=== PATIENT | male | born 1975 | race Caucasian/White ===

== ENCOUNTER 2016-11-12 00:57 | Emergency (ER) | payer MEDICAID ==
--- NOTE | 2016-11-12 02:10 | ER Document Report ---
ED Medical Screen (RME) - General Chief Complaint: Breathing Difficulty Stated Complaint: TROUBLE BREATHING Time seen by provider: 02:08 Notes: 41 year old male, comes to the ED for chief complaint of waking up gasping from sleeping tonight. Has happened 2 nights in a row, only when lying down. Questionable swelling of both ankles. Denies chest pain, denies current symptoms. PMH smoking, HTN, denies CHF or cardiopulmonary hx. No diagnosed RAYMOND. TRAVEL OUTSIDE OF THE [place] IN LAST 30 DAYS: No - Related Data Allergies/Adverse Reactions: No Known Allergies Allergy (Verified 11/28/15 08:44) Past Medical History - Past Medical History Cardiac Medical History: Reports: Hx Hypertension - on meds Denies: Hx Coronary Artery Disease, Hx Heart Attack Pulmonary Medical History: Reports: Hx Bronchitis - hx of, Hx Pneumonia - hx of Denies: Hx Asthma, Hx COPD Neurological Medical History: Denies: Hx Cerebrovascular Accident, Hx Seizures Musculoskeltal Medical History: Denies Hx Arthritis - Immunizations Hx Diphtheria, Pertussis, Tetanus Vaccination: No Physical Exam - Respiratory Respiratory status: No respiratory distress Breath sounds: No: Decreased air movement, Stridor, Wheezing
--- NOTE | 2016-11-12 05:25 | ER Document Report ---
ED Respiratory Problem - General Chief Complaint: Breathing Difficulty Stated Complaint: TROUBLE BREATHING Notes: 41 year old male, comes to the ED for chief complaint of waking up gasping from sleeping tonight. Has happened 2 nights in a row, only when lying down. Questionable swelling of both ankles. Denies chest pain, denies current symptoms. PMH smoking, HTN, denies CHF or cardiopulmonary hx. No diagnosed RAYMOND. TRAVEL OUTSIDE OF THE [place] IN LAST 30 DAYS: No - Related Data Allergies/Adverse Reactions: No Known Allergies Allergy (Verified 11/28/15 08:44) Past Medical History - General Information source: Patient - Social History Smoking Status: Current Some Day Smoker Chew tobacco use (# tins/day): No Frequency of alcohol use: Heavy Drug Abuse: None Lives with: Family Family History: Reviewed & Not Pertinent. denies: CAD Patient has suicidal ideation: No Patient has homicidal ideation: No - Past Medical History Cardiac Medical History: Reports: Hx Hypertension - on meds Denies: Hx Coronary Artery Disease, Hx Heart Attack Pulmonary Medical History: Reports: Hx Bronchitis - hx of, Hx Pneumonia - hx of Denies: Hx Asthma, Hx COPD Neurological Medical History: Denies: Hx Cerebrovascular Accident, Hx Seizures Renal/ Medical History: Denies: Hx Peritoneal Dialysis Musculoskeltal Medical History: Denies Hx Arthritis - Immunizations Hx Diphtheria, Pertussis, Tetanus Vaccination: No Review of Systems - Review of Systems Constitutional: No symptoms reported EENT: No symptoms reported Cardiovascular: See HPI Respiratory: See HPI Gastrointestinal: No symptoms reported Genitourinary: No symptoms reported Male Genitourinary: No symptoms reported Musculoskeletal: No symptoms reported Skin: No symptoms reported Hematologic/Lymphatic: No symptoms reported Neurological/Psychological: No symptoms reported Physical Exam - Vital signs Interpretation: Normal - General General appearance: Appears well, Alert In distress: None - HEENT Head: Normocephalic, Atraumatic Eyes: Normal Conjunctiva: Normal Extraocular movements intact: Yes Eyelashes: Normal Pupils: PERRL Mucous membranes: Normal Pharynx: Normal. No: Potential airway comprom. Neck: Normal - Respiratory Respiratory status: No respiratory distress. No: Tachypnea Chest status: Nontender Breath sounds: Normal. No: Decreased air movement, Wheezing Chest palpation: Normal - Cardiovascular Rhythm: Regular. No: Tachycardia Heart sounds: Normal auscultation, S1 appreciated, S2 appreciated Murmur: No - Abdominal Inspection: Normal Distension: No distension Bowel sounds: Normal Tenderness: Nontender Organomegaly: No organomegaly - Back Back: Normal, Nontender - Extremities General upper extremity: Normal inspection, Nontender, Normal color, Normal ROM , Normal temperature General lower extremity: Normal inspection, Nontender, Normal color, Normal ROM , Normal temperature, Normal weight bearing. No: Jose's sign - Neurological Neuro grossly intact: Yes Cognition: Normal Orientation: AAOx4 [place] Coma Scale Eye Opening: Spontaneous [place] Coma Scale Verbal: Oriented [place] Coma Scale Motor: Obeys Commands [place] Coma Scale Total: 15 Speech: Normal Motor strength normal: LUE, RUE, LLE, RLE Sensory: Normal - Psychological Associated symptoms: Normal affect, Normal mood - Skin Skin Temperature: Warm Skin Moisture: Dry Skin Color: Normal Course - Re-evaluation Re-evalutation: Patient is well-appearing, no tachypnea, no hypoxia, lungs clear on exam. EKG unremarkable, chest x-ray unremarkable. Patient does not have any noted edema, no tachycardia. Patient is obese, with described symptoms and examination most suggestive of RAYMOND, discussed findings and recommendations with patient in detail , patient states he will follow-up closely with his primary and obtain polysomnography studies, discussed return precautions, patient states satisfaction and agreement. Discharge - Discharge Clinical Impression: Shortness of breath Condition: Stable Disposition: HOME, SELF-CARE Additional Instructions: No abnormalities are seen on your workup or examination tonight. Your symptoms are most suggestive of obstructive sleep apnea (RAYMOND). Please follow-up closely with your provider for a sleep study and management. Return to the emergency department for any concerning or worsening symptoms. Forms: Smoking Cessation Education
[2016-11-12 07:21] VITALS: BP 137/87
--- NOTE | 2016-11-12 08:08 | EKG REPORT ---
SEVERITY:- NORMAL ECG - SINUS RHYTHM : Confirmed by: Andrew Levy MD 12-Nov-2016 08:07:36
== END 2016-11-12 05:30 | disposition home or self-care (01) ==
LOC: ER 00:57
DX: R06.02 Shortness of breath (principal); E66.9 Obesity, unspecified; F17.200 Nicotine dependence, unspecified, uncomplicated; I10 Essential (primary) hypertension
CPT/HCPCS: 71020; 93005; 93010; 99285